=== PATIENT | male | born 1960 | race Caucasian/White ===

== ENCOUNTER 2022-05-09 08:04 | Outpatient (CLI) | payer MEDICARE, OTHER ==
[~2022-05-09 08:04] MED LIST: LORA1TAB PO
== END 2022-05-09 23:59 | disposition home or self-care (01) ==
LOC: LAB 08:04
PROVIDERS: ATTEND Surgery
DX: Z01.812 Encounter for preprocedural laboratory examination (principal); Z20.822 Contact with and (suspected) exposure to COVID-19; K62.5 Hemorrhage of anus and rectum; K64.2 Third degree hemorrhoids; K60.1 Chronic anal fissure

== ENCOUNTER 2022-05-12 07:44 | Day surgery (SDC) | payer MEDICARE, OTHER ==
[2022-05-12] MEDS ORDERED: FENTANYL CITRATE 100 MCG/2 ML AMPUL ONE ×2 (09:35→10:24)
[2022-05-12] MEDS ORDERED: LIDOCAINE HCL 1% 20 ML VIAL ONE (10:44)
[2022-05-12] MEDS ORDERED: BUPIVACAINE/EPI PF 0.5% 10 ML VIAL ONE (10:44)
[2022-05-12] MEDS ORDERED: DEXAMETHASONE SOD PHOSPHATE 4 MG INJ ONE (12:00)
[2022-05-12] MEDS ORDERED: SUCCINYLCHOLINE CHLORIDE 200 MG/10 ML VIAL ONE (12:00)
[2022-05-12] MEDS ORDERED: LIDOCAINE-MPF 2% 5 ML VIAL ONE (12:00)
[2022-05-12] MEDS ORDERED: ONDANSETRON 4 MG/2 ML VIAL ONE (12:00)
[2022-05-12] MEDS ORDERED: PROPOFOL 200 MG/20 ML BOTTLE ONE (12:00)
[2022-05-12] MEDS ORDERED: CEFAZOLIN 1 G VIAL ONE (12:00)
[2022-05-12] MEDS ORDERED: IBUPROFEN 800 MG TABLET ONE (12:13)
[2022-05-12] MEDS ORDERED: GABAPENTIN 300 MG CAPSULE ONE (12:13)
[2022-05-12] MEDS ORDERED: ACETAMINOPHEN 325 MG TABLET ONE (12:14)
[2022-05-12] MEDS ORDERED: IBUPROFEN 800 MG TABLET PO ONE (12:30)
[2022-05-12] MEDS ORDERED: ACETAMINOPHEN 325 MG TABLET PO ONE (12:30)
[2022-05-12] MEDS ORDERED: GABAPENTIN 300 MG CAPSULE PO ONE (12:30)
== END 2022-05-12 12:56 | disposition home or self-care (01) ==
LOC: DS 07:44
PROVIDERS: ATTEND Surgery
DX: K62.5 Hemorrhage of anus and rectum (principal); R19.4 Change in bowel habit; K63.89 Other specified diseases of intestine; K60.1 Chronic anal fissure; K64.4 Residual hemorrhoidal skin tags; I10 Essential (primary) hypertension; E11.9 Type 2 diabetes mellitus without complications; M81.0 Age-related osteoporosis without current pathological fracture; F17.210 Nicotine dependence, cigarettes, uncomplicated; Z79.899 Other long term (current) drug therapy; Z98.890 Other specified postprocedural states; Z86.010 Personal history of colon polyps
CPT/HCPCS: 46260; 45380; 71045; J3490 ×2; J3010 ×2; A4649; A4663; J0330; J0690; J1100; J2405; J7040; J7120